=== PATIENT | male | born 1990 | race Caucasian/White ===

== ENCOUNTER 2018-08-21 19:20 | Emergency (ER) | payer OTHER, SELFPAY ==
[2018-08-21 19:22] VITALS: BP 130/90; PULSE 120; RESP 16; TEMP 36.3; O2SAT 98; BMI 31.4
--- NOTE | 2018-08-21 20:35 | ED.VISSUMM ---
- ER Visit Summary Date of Service: 08/21/18 Chief Complaint: Laceration History of Present Illness: The patient is a 28 M who presents with laceration to his left little finger that occurred today while at work. Patient states he was cut on a wire. Patient denies any paresthesias or weakness. Patient states his last tetanus was 2 years ago. Patient states the bleeding stopped after several minutes of pressure. Patient denies any other injuries. Physical Examination: Vital signs are stable. Patient is afebrile. Patient is in no acute distress. Skin is warm and dry. There is a 1 cm full-thickness linear laceration over the dorsal aspect of the middle phalanx of the left small finger. There is no foreign body noted. There is mild gapping of the wound margins. There is no active bleeding noted. Sensation was intact to light touch in all digits. Capillary refill was less than 2 seconds in all digits. Strength is 5/5 in flexion extension of the MP, PIP, and DIP joints. The remaining physical exam is within normal limits. Emergency Department Course and Treatment: The wound was cleaned and closed with Dermabond skin adhesive. Patient tolerated procedure well. Patient was given a prescription for Keflex. Patient was instructed to follow-up with [facility] in 7-10 days. Patient understood and was agreeable with the plan. All questions were answered. Disposition: Discharge home Impression: Left small finger laceration This note was generated with [employer] dictation software. It may contain incorrect words, spelling, and punctuation that were not noted in review of the chart prior to signing ED Disposition - Plan for ED Patient: Disposition: Home or Assisted Living Chief Complaint: Laceration Diagnosis: Laceration of left little finger w/o foreign body w/o damage to nail Instructions: ED Laceration Ext Skin Glue Prescriptions: Cephalexin [Keflex] 500 mg PO Q6 5 Days #20 cap Referrals: Care Physician,No Primary [Primary Care Provider] -
--- NOTE | 2018-08-21 20:39 | ED.DCSUM_ITS ---
- ER Visit Summary Date of Service: 08/21/18 Chief Complaint: Laceration History of Present Illness: The patient is a 28 M who presents with laceration to his left little finger that occurred today while at work. Patient states he was cut on a wire. Patient denies any paresthesias or weakness. Patient states his last tetanus was 2 years ago. Patient states the bleeding stopped after several minutes of pressure. Patient denies any other injuries. Physical Examination: Vital signs are stable. Patient is afebrile. Patient is in no acute distress. Skin is warm and dry. There is a 1 cm full-thickness linear laceration over the dorsal aspect of the middle phalanx of the left small finger. There is no foreign body noted. There is mild gapping of the wound margins. There is no active bleeding noted. Sensation was intact to light touch in all digits. Capillary refill was less than 2 seconds in all digits. Strength is 5/5 in flexion extension of the MP, PIP, and DIP joints. The remaining physical exam is within normal limits. Emergency Department Course and Treatment: The wound was cleaned and closed with Dermabond skin adhesive. Patient tolerated procedure well. Patient was given a prescription for Keflex. Patient was instructed to follow-up with [facility] in 7-10 days. Patient understood and was agreeable with the plan. All questions were answered. Disposition: Discharge home Impression: Left small finger laceration This note was generated with [employer] dictation software. It may contain incorrect words, spelling, and punctuation that were not noted in review of the chart prior to signing ED Disposition - Plan for ED Patient: Disposition: Home or Assisted Living Chief Complaint: Laceration Diagnosis: Laceration of left little finger w/o foreign body w/o damage to nail Instructions: ED Laceration Ext Skin Glue Prescriptions: Cephalexin [Keflex] 500 mg PO Q6 5 Days #20 cap Referrals: Care Physician,No Primary [Primary Care Provider] -
[2018-08-21 20:40] VITALS: BP 134/73; PULSE 93; RESP 16; O2SAT 100
== END 2018-08-21 21:16 | disposition home or self-care (01) ==
LOC: ED 20:55
PROVIDERS: Emergency Provider Emergency Medicine
DX: S61.217A Laceration without foreign body of left little finger without damage to nail, initial encounter (principal); W45.8XXA Other foreign body or object entering through skin, initial encounter; Y93.89 Activity, other specified; Y92.9 Unspecified place or not applicable; Y99.0 Civilian activity done for income or pay
CPT/HCPCS: 12001; 99282

== ENCOUNTER 2020-12-31 20:09 | Emergency (ER) | payer OTHER, SELFPAY ==
[2020-12-31 20:10] VITALS: BP 129/63; PULSE 99; RESP 12; TEMP 36.9; O2SAT 97; BMI 34.0
[2020-12-31 20:13] VITALS: O2SAT 97
--- NOTE | 2020-12-31 20:56 | ED.VISSUMM ---
- ER Visit Summary Date of Service: 12/31/20 Chief Complaint: Shortness of breath History of Present Illness: The patient is a 30 M who presents with shortness of breath that began today while he was at work. Patient states that began rather suddenly. Patient states he felt like he was having trouble breathing. Patient states he also felt like his heart was racing and he was having generalized tingling. Patient states this lasted for approximately 1-1/2 minutes. Patient states his boss called EMS who brought the patient to the emergency department. Patient states his symptoms improved after being placed on oxygen. Patient denies any chest pain. Patient denies any cough. Patient denies any fevers or chills. Physical Examination: Vital signs are stable. Patient is afebrile. Patient is in no acute distress. Oral mucosa is pink and moist. Neck is supple. Trachea is midline. There is no JVD noted. Heart was regular rate and rhythm. Lungs are clear and equal bilaterally. Abdomen is soft. Bowel sounds are normal. There is no tenderness. There is no rebound or guarding noted. Skin is warm dry. Cranial nerves II through XII are intact. There are no focal motor or sensory deficits noted. Extremities are intact. There is no calf tenderness or edema. Test Results: CBC was normal. Comprehensive metabolic profile showed a mild hypokalemia 3.3 but was otherwise within normal limits. Emergency Department Course and Treatment: Patient is feeling better on reevaluation. Patient was instructed to follow-up with his primary care physician in 5 to 7 days. Patient understood and was agreeable with the plan. All questions were answered. Disposition: Discharge home Impression: Acute anxiety, resolved This note was generated with [employer] dictation software. It may contain incorrect words, spelling, and punctuation that were not noted in review of the chart prior to signing ED Disposition - Plan for ED Patient: Disposition: Home or Assisted Living Diagnosis: Anxiety Instructions: ED Anxiety Reaction Referrals: Care Physician,No Primary [Primary Care Provider] - 5-7 Days
[2020-12-31] MEDS: 0.9% Normal Saline 1,000 ML 1000 ML IV (21:11)
[2020-12-31 21:15] LABS: Absolute Lymphocyte Count 1.71 X10^3/uL (0.83-4.51); Absolute Neutrophil Count 7.6 X10^3/uL (2.0-7.7); Basophil# 0.06 X10^3/uL; Basophil% 0.6 % (0-1); Eosinophil# 0.12 X10^3/uL; Eosinophils% 1.2 % (0-5); Hematocrit 46.3 % (40-54); Hemoglobin 14.9 g/dL (13.0-16.5); Lymphocyte # 1.71 X10^3/ul (4.0); Lymphocyte % 16.4 % (19-41); Mean Corp Hgb Conc 32.2 g/dL (32-36); Mean Corpuscular Hgb 27.5 pg (27.0-32.0); Mean Corpuscular Volume 85.6 fL (80-94); Mean Platelet Vol. 9.9 fl (6.2-12.0); Monocyte# 0.85 X10^3/uL; Monocyte% 8.2 % (0-10); NRBC Flagged by Analyzer 0 % (0-5); Neutrophil # 7.62 X10^3/uL (2.7-7.7); Neutrophil % 73.2 % (47-70); Platelet Count 242 K/mm3 (150-450); RBC Distribution Width CV 12.8 % (11.6-14.6); RBC Distribution Width SD 40.1 fl (35.1-43.9); Red Blood Count 5.41 M/mm3 (4.6-6.2); White Blood Count 10.4 K/mm3 (4.4-11.0)
[2020-12-31 21:35] LABS: ALB/GLOB Ratio 1.3 RATIO (0.9-2.4); AST(SGOT) 24 U/L (15-37); Alanine Aminotransfer ALT/SGPT 35 U/L (16-61); Albumin, Serum 4.3 g/dL (3.2-5.0); Alkaline Phosphatase 72 U/L (45-117); Anion Gap 8 (5-15); BUN 15 mg/dL (7-18); BUN/Creat Ratio 12.2 RATIO (10-20); Calcium,Total 9.2 mg/dL (8.5-10.1); Chloride 109 mmol/L (98-107); Creatinine, Serum 1.23 mg/dL (0.70-1.30); EST Glomerular Filtration Rate 74 mL/min (>60); Est Glom Filt Rate - Afr Amer 89 mL/min (>60); Estimated Creatinine Clearance 82.85 ml/min; Globulin 3.3 g/dL (2.2-4.2); Glucose 86 mg/dL (74-106); Potassium 3.3 mmol/L (3.5-5.1); Protein, Total 7.6 g/dL (6.4-8.2); Sodium Level 141 mmol/L (136-145)
[2020-12-31 21:58] VITALS: PULSE 86; RESP 17; O2SAT 97
== END 2020-12-31 22:05 | disposition home or self-care (01) ==
LOC: ED 21:45
PROVIDERS: Emergency Provider Emergency Medicine
DX: F41.9 Anxiety disorder, unspecified (principal)
CPT/HCPCS: 80053; 85025; 96360; 99284; J7030